=== PATIENT | female | born 1950 | race Caucasian/White ===

== ENCOUNTER 2024-08-15 10:09 | Day surgery (SDC) | payer OTHER, MEDICAID ==
[2024-08-14 14:33] LABS: BILIRUBIN,URINE NEGATIVE (NEGATIVE); BLOOD, URINE NEGATIVE (NEGATIVE); CLARITY/URINE CLEAR (CLEAR); COLOR,URINE YELLOW (YELLOW); GLUCOSE,URINE NEGATIVE (NEGATIVE); KETONES,URINE NEGATIVE (NEGATIVE); LEUKOCYTE ESTERASE ,URINE NEGATIVE (NEGATIVE); NITRITE, URINE NEGATIVE (NEGATIVE); PROTEIN URINE NEGATIVE (NEGATIVE); UROBILINOGEN,URINE 0.2 (0.2-1.0)
[2024-08-14 14:37] LABS: BASOPHILS % (AUTO) 0.4 % (0.0-2.0); EOSINOPHILS # (AUTO) 0.1 K/uL (0.0-0.4); EOSINOPHILS % (AUTO) 3.6 % (0.0-4.0); HEMATOCRIT 33.7 % (36-48); HEMOGLOBIN 10.9 g/dL (12.0-16.0); LYMPHOCYTES # (AUTO) 1.4 K/uL (1.0-5.5); LYMPHOCYTES % (AUTO) 32.9 % (20.5-51.5); MEAN CORPUSCULAR HEMOGLOBIN 28 pg (27-31); MEAN CORPUSCULAR HGB CONC 32 % (32-36); MEAN CORPUSCULAR VOLUME 85 fL (79.0-98.0); MONOCYTES # (AUTO) 0.4 K/uL (0.0-1.0); MONOCYTES % (AUTO) 10.2 % (1.7-9.3); NEUTROPHILS # (AUTO) 2.2 K/uL (1.8-7.7); NEUTROPHILS % (AUTO) 52.9 % (40.0-70.0); PLATELET COUNT (AUTO) 224 K/uL (130-430); RED BLOOD CELL COUNT(AUTO) 3.95 MIL/uL (4.2-6.2); RED CELL DISTRIBUTION WIDTH 15.2 % (9.0-15.0); WHITE BLOOD COUNT (AUTO) 4.1 K/uL (4.8-10.8)
[2024-08-14 15:12] LABS: PROTHROMBIN TIME 10.3 SECS (9.5-12.5)
[2024-08-14 15:19] LABS: ALANINE AMINOTRANSFERASE 6 U/L (12-78); ALBUMIN 3.5 g/dL (3.4-4.8); ANION GAP 4 (5-15); ASPARTATE AMINOTRANSFERASE 16 U/L (10-37); CALCIUM 9.3 mg/dL (8.4-11.0); CARBON DIOXIDE 32 mmol/L (23-29); CHLORIDE 108 mmol/L (98-107); CREATININE 0.91 mg/dL (0.55-1.30); GLUCOSE 98 mg/dL (74-106); POTASSIUM 4.6 mmol/L (3.5-5.1); SODIUM SERUM 144 mmol/L (136-145); TOTAL BILIRUBIN 0.5 mg/dL (0.0-1.0); UREA NITROGEN, BLOOD 10 mg/dL (8-21)
[~2024-08-15] VITALS: Ht 157.5 cm; Wt 87.8 kg
[~2024-08-15 10:09] MED LIST: ceFAZolin SODIUM 2 GM in D5W 100 ML IV ONE
[2024-08-15] MEDS ORDERED: ACETAMINOPHEN 500 MG TABLET ONE (10:30)
[2024-08-15] MEDS ORDERED: oxyCODONE HCL 10 MG TAB.ER.12H PO ONE (10:32)
[2024-08-15] MEDS ORDERED: GABAPENTIN 300 MG CAPSULE ONE (10:33)
[2024-08-15] MEDS ORDERED: LORATADINE 10 MG TABLET PO PRN (11:00)
[2024-08-15] MEDS ORDERED: traMADol HCL HCL 50 MG TABLET (ULTRAM) PO PRN (11:00)
[2024-08-15] MEDS ORDERED: HYDROmorphone 1 MG/ML INJ. CARTRIDGE IVP PRN ×3 (11:00→15:45)
[2024-08-15] MEDS: GABAPENTIN 300 MG CAPSULE PO ONE (11:01)
[2024-08-15] MEDS: ACETAMINOPHEN 500 MG TABLET PO ONE (11:01)
[2024-08-15] MEDS: oxyCODONE HCL 10 MG TAB.ER.12H PO ONE (14:36)
[2024-08-15] MEDS ORDERED: fentaNYL CITRATE/PF 100 MCG/2 ML AMP ONE (14:39)
[2024-08-15] MEDS ORDERED: MIDAZOLAM HCL 2 MG/2 ML VIAL (VERSED) ONE (14:39)
[2024-08-15] MEDS ORDERED: LR 1,000 ML IV.SOLN IV ONE (14:47)
[2024-08-15] MEDS ORDERED: EPINEPHrine HCL 1 MG/ML VIAL ONE (14:47)
[2024-08-15] MEDS ORDERED: SEVOFLURANE 15 MIN GAS INH ONE (14:47)
[2024-08-15] MEDS ORDERED: NS IRRIG SOLN 1000 ML IR ONE (14:47)
[2024-08-15] MEDS ORDERED: TRANEXAMIC ACID 1,000 MG/10 ML VIAL ONE (14:47)
[2024-08-15] MEDS ORDERED: ROPIVACAINE HCL/PF 5 MG/ML 0.5% 30 ML VIAL ONE (14:47)
[2024-08-15] MEDS ORDERED: VANCOMYCIN HCL 1000 MG/VIAL IV ONE (14:47)
[2024-08-15] MEDS ORDERED: ePHEDrine sulfate 50 MG/ML VIAL ONE (14:47)
[2024-08-15] MEDS ORDERED: WATER FOR IRRIGATION,STERILE 1,000 ML IRRIG.SOLN IR ONE (14:47)
[2024-08-15] MEDS ORDERED: ROCURONIUM BROMIDE 10 MG/ML (ZEMURON) ONE (14:47)
[2024-08-15] MEDS ORDERED: GLYCOPYRROLATE 0.2 MG/ML VIAL ONE (14:47)
[2024-08-15] MEDS ORDERED: ONDANSETRON HCL 4 MG/2 ML VIAL ONE ×2 (14:47→18:14)
[2024-08-15] MEDS ORDERED: PROPOFOL 200MG/ 20ML VIAL (DIPRIVAN) IV ONE (14:47)
[2024-08-15] MEDS ORDERED: NEOSTIGMINE METHYLSULFATE 1 MG/ML, 10 ML VIAL ONE (14:47)
[2024-08-15] MEDS ORDERED: fentaNYL CITRATE/PF 100 MCG/2 ML AMP IVP PRN ×2 (15:45)
[2024-08-15] MEDS ORDERED: LR 1,000 ML IV ONE (15:45)
[2024-08-15] MEDS ORDERED: BISACODYL 10 MG/SUPPOSITORY RC PRN (17:15)
[2024-08-15] MEDS ORDERED: METOCLOPRAMIDE HCL 10 MG/2 ML VIAL IVP PRN (17:15)
[2024-08-15] MEDS ORDERED: DIPHENHYDRAMINE HCL 25 MG CAPSULE PO PRN (17:15)
[2024-08-15] MEDS ORDERED: LACTULOSE 20 GM/30 ML UDC PO PRN (17:15)
[2024-08-15] MEDS: ONDANSETRON HCL 4 MG/2 ML VIAL IVP PRN ×2 (18:15→21:41)
[2024-08-15] MEDS: ACETAMINOPHEN 500 MG TABLET PO SCH (21:41)
[2024-08-15] MEDS: ceFAZolin SODIUM 2 GM in D5W 50 ML IV SCH (21:41)
[2024-08-15] MEDS: SENNOSIDES/DOCUSATE SODIUM 1 TAB TABLET(SENOKOT-S) PO SCH (21:42)
[2024-08-15 23:33] VITALS: BP_SYST 148; PULSE 84; RESP 18; TEMP 98.5; O2SAT 97
[2024-08-16] MEDS: CALCIUM CARBONATE 500 MG/ TAB.CHEW PO PRN (00:45)
[2024-08-16 01:02] VITALS: BP_SYST 143; PULSE 60; RESP 17; TEMP 96.8; O2SAT 94
[2024-08-16] MEDS: oxyCODONE HCL 5 MG TABLET PO PRN ×2 (05:46→10:22)
[2024-08-16 09:00] VITALS: O2SAT 99
[2024-08-16 13:58] VITALS: BP_SYST 131; PULSE 93; RESP 18; TEMP 97.9; O2SAT 95
[2024-08-16 14:16] VITALS: BP_SYST 120; PULSE 83; RESP 18; TEMP 97.1; O2SAT 97
[2024-08-16] MEDS: HYDROmorphone 1 MG/ML INJ. CARTRIDGE IVP PRN (14:38)
[2024-08-16 17:01] VITALS: BP_SYST 103; PULSE 85; RESP 18; TEMP 98.2; O2SAT 94
== END 2024-08-16 16:50 | disposition home or self-care (01) ==
LOC: SDS 10:09 → SMU 10:10 → SDS 08-16 16:50
PROVIDERS: ATTEND Orthopaedic Surgery Sports Medicine
DX: M19.011 Primary osteoarthritis, right shoulder (principal); M25.711 Osteophyte, right shoulder; M25.511 Pain in right shoulder; I10 Essential (primary) hypertension; K21.9 Gastro-esophageal reflux disease without esophagitis; E78.5 Hyperlipidemia, unspecified; J45.909 Unspecified asthma, uncomplicated; F41.9 Anxiety disorder, unspecified; F32.A Depression, unspecified; G89.18 Other acute postprocedural pain; Z88.0 Allergy status to penicillin; Z88.5 Allergy status to narcotic agent; Z88.8 Allergy status to other drugs, medicaments and biological substances; Z90.49 Acquired absence of other specified parts of digestive tract; Z98.890 Other specified postprocedural states; Z79.899 Other long term (current) drug therapy
CPT/HCPCS: 87081; 80053; 81001; 85025; 85610; 85730; 36415; 81003; 23472; 23430; 64415; 88304; 88311; J0171; J3490 ×2; J2250; J2405; J2704; J3370; J3010; J7060 ×2; J7120; C1776 ×2; J1170; J2710; 76000